=== PATIENT | female | born 1970 | race Hispanic/Latino ===

== ENCOUNTER 2016-07-23 17:21 | Inpatient (IN) | payer OTHER ==
[2016-07-23 18:16] LABS: RBC URINE 2 /hpf (0-3); URINE BACTERIA RARE (<OCC); URINE BILIRUBIN 1+ (NEGATIVE); URINE BLOOD NEGATIVE (NEGATIVE); URINE COLOR Amber (YELLOW); URINE GLUCOSE (UA) NORMAL (Normal); URINE KETONE TRACE mg/dL (NEGATIVE); URINE LEUKOCYTE ESTERASE NEG Leu/uL (Negative); URINE PROTEIN NEGATIVE (NEGATIVE); WBC URINE 1 /hpf (0-5)
[2016-07-23 18:27] LABS: BASO # 0.1 K/uL (0.0-0.2); BASO % 0.9 % (0.0-2.0); EOS # 0.2 K/uL (0.0-0.7); EOS % 2.4 % (0.0-4.0); HEMATOCRIT 32.7 % (34.0-47.0); LYMPH # 2.3 K/uL (1.0-4.3); LYMPH % 30.9 % (20.0-40.0); MEAN CELL VOLUME 80.7 fL (81.0-99.0); MEAN CORPUSCULAR HEMOGLOBIN 25.8 pg (27.0-31.0); MEAN PLATELET VOLUME 7.8 fL (7.2-11.7); MONO # 0.5 K/uL (0.0-0.8); MONO % 7.1 % (0.0-10.0); RED CELL DISTRIBUTION WIDTH 16.6 % (11.5-14.5); WHITE BLOOD COUNT 7.5 K/uL (4.8-10.8)
[2016-07-23 18:40] LABS: CHLORIDE 105 mmol/L (98-107); POTASSIUM 3.7 mmol/L (3.6-5.2); SODIUM 138 mmol/L (132-148)
[2016-07-23 18:42] LABS: GFR AFRICAN-AMERICAN > 60
[2016-07-23 18:43] LABS: ALKALINE PHOSPHATASE 58 U/L (38-126); ALT/SGPT 57 U/L (9-52); AST/SGOT 48 U/L (14-36); BILIRUBIN,TOTAL 0.7 mg/dL (0.2-1.3); BLOOD UREA NITROGEN 13 mg/dL (7-17); CALCIUM 9.5 mg/dl (8.6-10.4); CARBON DIOXIDE 21 mmol/L (22-30); GLUCOSE,RANDOM 113 mg/dL (65-105); TOTAL PROTEIN 8.2 g/dL (6.3-8.3)
[2016-07-23 18:44] LABS: ALCOHOL SERUM < 10 mg/dl (0-10)
--- NOTE | 2016-07-23 19:59 | C.PDOC ---
History Of Present Illness Patient presents to the ER requesting detox from heroin. Patients last use was 1 bag 4 hours ago. Denies any physical complaints at this time. Time Seen by Provider: 07/23/16 19:56 Chief Complaint (Nursing): Substance Abuse History Per: Patient History/Exam Limitations: no limitations Onset/Duration Of Symptoms: Hrs (4) Current Symptoms Are (Timing): Still Present Suicide/Self Injury Attempted (Context): None Modifying Factor(s): Narcotics Severity: None Pain Scale Rating Of: 0 Associated Symptoms: denies: Depression, Suicidal Thoughts, Suicidal Plan Involuntary Hold By: None Recent travel outside of the [place]: No Past Medical History Reviewed: Historical Data, Nursing Documentation, Vital Signs Vital Signs: Last Vital Signs Temp 98.5 F 07/23/16 17:34 Pulse 75 07/23/16 17:34 Resp 20 07/23/16 17:34 BP 104/67 07/23/16 17:34 Pulse Ox 98 07/23/16 20:05 - Medical History PMH: Asthma - [facility] Procedures ARTIF RUPT [facility]BRANES NEC (11/06/00) MANUAL ASSIST DELIV NEC (04/05/04) REPAIR OB LACERATION NEC (11/06/00) Family History: States: No Known Family Hx - Social History Hx Alcohol Use: No Hx Substance Use: Yes - Immunization History Hx Tetanus Toxoid Vaccination: Yes Hx Influenza Vaccination: Yes Hx Pneumococcal Vaccination: Yes Review Of Systems Constitutional: Negative for: Fever, Chills ENT: Negative for: Throat Pain Cardiovascular: Negative for: Chest Pain Gastrointestinal: Negative for: Nausea, Vomiting, Diarrhea Genitourinary: Negative for: Dysuria Musculoskeletal: Negative for: Back Pain Skin: Negative for: Rash Neurological: Negative for: Weakness Psych: Negative for: Anxiety Physical Exam - Physical Exam Appears: Non-toxic Skin: Warm, Dry Head: Normacephalic Eye(s): bilateral: Normal Inspection Oral Mucosa: Moist Neck: Supple Chest: Symmetrical, No Tenderness Cardiovascular: Rhythm Regular, No Murmur Respiratory: No Rales, No Rhonchi, No Wheezing Gastrointestinal/Abdominal: Soft, No Tenderness Extremity: Normal ROM Extremity: Bilateral: Atraumatic Neurological/Psych: Oriented x3 Gait: Steady ED Course And Treatment - Laboratory Results Result Diagrams: 07/23/16 18:24 07/23/16 18:24 O2 Sat by Pulse Oximetry: 98 (Room air) Pulse Ox Interpretation: Normal Progress Note: Consulted on case with crisis. Disposition Counseled Patient/Family Regarding: Studies Performed, Diagnosis - Disposition Disposition Time: 19:00 Condition: FAIR - POA Present On Arrival: None - Clinical Impression Clinical Impression: Drug dependence - Scribe Statement The provider has reviewed the documentation as recorded by the Scribe Tye Byrne All medical record entries made by the Scribe were at my direction and personally dictated by me. I have reviewed the chart and agree that the record accurately reflects my personal performance of the history, physical exam, medical decision making, and the department course for this patient. I have also personally directed, reviewed, and agree with the discharge instructions and disposition. Decision To Admit - Pt Status Changed To: Hospital Disposition Of: Inpatient - Admit Certification Admit to Inpatient:: After my assessment, the patient will require hospitalization for at least two midnights. This is because of the severity of symptoms shown, intensity of services needed, and/or the medical risk in this patient being treated as an outpatient. - InPatient: Physician Admission Certification: I certify that this patient requires 2 or more midnights of care for the following reason:: After my assessment, the patient will require hospitalization for at least two midnights. This is because of the severity of symptoms shown, intensity of services needed, and/or the medical risk in this patient being treated as an outpatient. - . Bed Request Type: Detox Admitting Physician: Nilson Canales Patient Diagnosis: Drug dependence
[2016-07-23] MEDS ORDERED: Albuterol HFA 90 mcg/actuation (8 g) INH PRN (21:05)
[2016-07-24] MEDS ORDERED: Buprenorphine Hydrochloride 2 mg SL ONE ×6 (01:02→19:04)
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
[2016-07-24] MEDS: Aluminum Hydroxide/Magnesium Hydroxide Susp (30 mL) PO PRN (15:36)
[2016-07-24] MEDS: Pantoprazole 20 mg EC Tab PO SCH (15:37)
[2016-07-25] MEDS: Aluminum Hydroxide/Magnesium Hydroxide Susp (30 mL) PO PRN (01:51)
[2016-07-25] MEDS ORDERED: Buprenorphine Hydrochloride 2 mg SL ONE ×3 (08:45→18:00)
[2016-07-25] MEDS: Pantoprazole 20 mg EC Tab PO SCH (10:38)
--- NOTE | 2016-07-25 11:53 | PCM.PYCHPN ---
Psychiatric Progress Note - Psychiatric Progress Note Patient seen today, length of contact: 15 min Patient Chief Complaint: "I feel better" Problems Identified/Issues Discussed: The pt is seen, chart reviewed, case discussed with staff. The pt is compliant with medications and reports no side-effects. She reports improvement in her symptoms from yesterday but had a bad day yesterday. Patient receiving extra doses; will receive 10 mg today. Symptoms are improving but needs more time to stabilize. After care discussed, support and psychoeducation given. Patient plans to meet with social work to discuss after care and rehab/IOP options. Time: 15 min Medication Change: Yes (detox changes daily) Medical Record Reviewed: Yes Mental Status Examination - Cognitive Function Orientation: Person, Place, Situation, Time Memory: Intact Attention: WNL Concentration: WNL Association: WNL Fund of Knowledge: WNL - Mood Mood: Depressed, Anxious - Affect Affect: Broad - Speech Speech: Appropriate - Formal Thought Process Formal Thought Process: No Impairment - Suicidal Ideation Suicidal Ideation: No - Homicidal Ideation Homicidal Ideation: No Goal/Treatment Plan - Goal/Treatment Plan Need for Continued Stay: Remain at risks for inpatient hospitalization, Discharge may exacerbated symptoms Progress Toward Problem(s) and Goals/Treatment Plan: Opioid use disorder severe - CBT - Psychoeducation - Supportive therapy, individual therapy - Use AL for abstinence Opioid withdrawal - CBT - Psychoeducation - Supportive therapy, individual therapy - Clonidine when necessary - Subutex taper Bipolar disorder mixed mild - CBT - Psychoeducation - Supportive therapy, group therapy, individual therapy - Trazodone 50 mg by mouth daily at bedtime Asthma - Continue prescribed medications - Monitor signs and symptoms Estimated Date of D/C: 07/29/16 (pending improvement of symptoms) - Smoking Cessation Smoking Cessation Initiated: Yes
[2016-07-26] MEDS: Aluminum Hydroxide/Magnesium Hydroxide Susp (30 mL) PO PRN (07:32)
[2016-07-26] MEDS: Pantoprazole 20 mg EC Tab PO SCH ×2 (08:59→11:11)
[2016-07-26] MEDS ORDERED: Buprenorphine Hydrochloride 2 mg SL ONE ×2 (09:00→18:00)
--- NOTE | 2016-07-26 10:34 | PCM.PYCHPN ---
Psychiatric Progress Note - Psychiatric Progress Note Patient seen today, length of contact: 15 min Patient Chief Complaint: "I feel nauseous." Problems Identified/Issues Discussed: The pt is seen, chart reviewed, case discussed with staff. The pt is evaluated at bedside. She is compliant with medications and reports no side-effects. She reports improvement in her symptoms from yesterday but still feels nauseous and withdrawal symptoms. Patient receiving extra doses; will receive 6 mg today with extra 2 mg in the evening. Symptoms are improving but needs more time to stabilize. After care discussed, support and psychoeducation given. Patient plans to go to [facility] upon discharge. Time: 15 min Medication Change: Yes (detox changes daily) Medical Record Reviewed: Yes Mental Status Examination - Cognitive Function Orientation: Person, Place, Situation, Time Memory: Intact Attention: WNL Concentration: WNL Association: WNL Fund of Knowledge: WNL - Mood Mood: Depressed, Anxious - Affect Affect: Broad - Speech Speech: Appropriate - Formal Thought Process Formal Thought Process: No Impairment - Suicidal Ideation Suicidal Ideation: No - Homicidal Ideation Homicidal Ideation: No Goal/Treatment Plan - Goal/Treatment Plan Need for Continued Stay: Remain at risks for inpatient hospitalization, Discharge may exacerbated symptoms Progress Toward Problem(s) and Goals/Treatment Plan: Opioid use disorder severe - CBT - Psychoeducation - Supportive therapy, individual therapy - Use DE for abstinence Opioid withdrawal - CBT - Psychoeducation - Supportive therapy, individual therapy - Clonidine when necessary - Subutex taper Bipolar disorder mixed mild - CBT - Psychoeducation - Supportive therapy, group therapy, individual therapy - Trazodone 50 mg by mouth daily at bedtime Asthma - Continue prescribed medications - Monitor signs and symptoms Estimated Date of D/C: 07/29/16 (pending improvement of symptoms)
[2016-07-27] MEDS ORDERED: Buprenorphine Hydrochloride 2 mg SL ONE ×2 (08:30→18:00)
[2016-07-27] MEDS: Pantoprazole 20 mg EC Tab PO SCH (09:07)
--- NOTE | 2016-07-27 12:11 | PCM.PYCHPN ---
Psychiatric Progress Note - Psychiatric Progress Note Patient seen today, length of contact: 16 min Patient Chief Complaint: "I can't sleep" Problems Identified/Issues Discussed: The pt is seen, chart reviewed, case discussed with staff. Support given, CBT and OH used briefly No new symptoms reported, improving slowly and needs more time No SEs from medications, risks discussed. After care discussed Seroquel increased Medication Change: Yes (detox changes daily) Medical Record Reviewed: Yes Mental Status Examination - Cognitive Function Orientation: Person, Place, Situation, Time Memory: Intact Attention: WNL Concentration: WNL Association: WNL Fund of Knowledge: WNL - Mood Mood: Depressed, Anxious - Affect Affect: Broad - Speech Speech: Appropriate - Formal Thought Process Formal Thought Process: No Impairment - Suicidal Ideation Suicidal Ideation: No - Homicidal Ideation Homicidal Ideation: No Goal/Treatment Plan - Goal/Treatment Plan Need for Continued Stay: Remain at risks for inpatient hospitalization, Discharge may exacerbated symptoms, Severe functional impairment Progress Toward Problem(s) and Goals/Treatment Plan: Opioid use disorder severe - CBT - Psychoeducation - Supportive therapy, individual therapy - Use OH for abstinence Opioid withdrawal - CBT - Psychoeducation - Supportive therapy, individual therapy - Clonidine when necessary - Subutex taper Bipolar disorder mixed mild - CBT - Increase seroquel - Psychoeducation - Supportive therapy, group therapy, individual therapy - Trazodone 50 mg by mouth daily at bedtime Asthma - Continue prescribed medications - Monitor signs and symptoms Estimated Date of D/C: 07/29/16 (pending improvement of symptoms)
[2016-07-28] MEDS: Buprenorphine Hydrochloride 2 mg SL SCH ×2 (09:09→17:09)
[2016-07-28] MEDS: Pantoprazole 20 mg EC Tab PO SCH (09:09)
--- NOTE | 2016-07-28 09:32 | PCM.PYCHPN ---
Psychiatric Progress Note - Psychiatric Progress Note Patient seen today, length of contact: 17 min Patient Chief Complaint: "I am anxious" Problems Identified/Issues Discussed: The pt is seen, chart reviewed, case discussed with staff. Support given, CBT and FL used briefly No new symptoms reported, improving slowly and needs some more time No SEs from medications, risks discussed. After care discussed Medication Change: Yes (detox changes daily) Medical Record Reviewed: Yes Mental Status Examination - Cognitive Function Orientation: Person, Place, Situation, Time Memory: Intact Attention: WNL Concentration: WNL Association: WNL Fund of Knowledge: WNL - Mood Mood: Depressed, Anxious - Affect Affect: Broad - Speech Speech: Appropriate - Formal Thought Process Formal Thought Process: No Impairment - Suicidal Ideation Suicidal Ideation: No - Homicidal Ideation Homicidal Ideation: No Goal/Treatment Plan - Goal/Treatment Plan Need for Continued Stay: Remain at risks for inpatient hospitalization, Discharge may exacerbated symptoms, Severe functional impairment Progress Toward Problem(s) and Goals/Treatment Plan: Opioid use disorder severe - CBT - Psychoeducation - Supportive therapy, individual therapy - Use FL for abstinence Opioid withdrawal - CBT - Psychoeducation - Supportive therapy, individual therapy - Clonidine when necessary - Subutex taper Bipolar disorder mixed mild - CBT - Increase seroquel - Psychoeducation - Supportive therapy, group therapy, individual therapy - Trazodone 50 mg by mouth daily at bedtime Asthma - Continue prescribed medications - Monitor signs and symptoms Estimated Date of D/C: 07/29/16 (pending improvement of symptoms)
[2016-07-28] MEDS: Aluminum Hydroxide/Magnesium Hydroxide Susp (30 mL) PO PRN (20:59)
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
[2016-07-29] MEDS: Buprenorphine Hydrochloride 2 mg SL SCH (09:34)
[2016-07-29] MEDS: Pantoprazole 20 mg EC Tab PO SCH (09:34)
[2016-07-29 09:57] VITALS: RESP 16; TEMP 98
[2016-07-29 10:05] VITALS: BP 100/67; PULSE 85; O2SAT 99
== END 2016-07-29 10:58 | disposition home or self-care (01) | DRG 745 ==
LOC: C.ER 17:21 → C.7D 20:22
PROVIDERS: ADMIT Psychiatry & Neurology Psychiatry; ATTEND Psychiatry & Neurology Psychiatry
PROC: HZ52ZZZ Individual Psychotherapy for Substance Abuse Treatment, Cognitive-Behavioral (ICD-10-PCS; principal; 2016-07-23)
PROC: HZ59ZZZ Individual Psychotherapy for Substance Abuse Treatment, Supportive (ICD-10-PCS; 2016-07-23)
PROC: HZ56ZZZ Individual Psychotherapy for Substance Abuse Treatment, Psychoeducation (ICD-10-PCS; 2016-07-23)
PROC: HZ2ZZZZ Detoxification Services for Substance Abuse Treatment (ICD-10-PCS; 2016-07-23)
DX: F11.23 Opioid dependence with withdrawal (principal); F31.60 Bipolar disorder, current episode mixed, unspecified; F17.210 Nicotine dependence, cigarettes, uncomplicated; F14.90 Cocaine use, unspecified, uncomplicated; F42.9 Obsessive-compulsive disorder, unspecified; F43.10 Post-traumatic stress disorder, unspecified; J45.909 Unspecified asthma, uncomplicated

== ENCOUNTER 2016-09-25 18:44 | Inpatient (IN) | payer MEDICAID ==
[2016-09-25 18:50] VITALS: BMI 26.1
--- NOTE | 2016-09-25 19:23 | C.PDOC ---
History Of Present Illness 46 y/o female with Hx of chronic iron deficiency due to DUB presents to ED requesting Heroin detox last snorted 4pm today. Patient states she snorts 10 bags daily. No track cardenas noted. Patient is non compliant with iron supplements and is not interested in having more children. Patient is interested in Hysterectomy and denies dyspnea on exertion or sob. No other complaints at this time. Time Seen by Provider: 09/25/16 19:14 Chief Complaint (Nursing): Substance Abuse History Per: Patient History/Exam Limitations: no limitations Onset/Duration Of Symptoms: Days Current Symptoms Are (Timing): Still Present Suicide/Self Injury Attempted (Context): None Past Medical History Reviewed: Historical Data, Nursing Documentation, Vital Signs Vital Signs: Last Vital Signs Temp 98.5 F 09/25/16 21:44 Pulse 81 09/25/16 21:44 Resp 18 09/25/16 21:44 BP 116/69 09/25/16 21:44 Pulse Ox 95 09/26/16 06:16 - Medical History PMH: Anxiety, Asthma, Bipolar Disorder, Depression, HTN, Post Traumatic Stress Disorder - [facility] Procedures [facility] N[facility] (11/06/00) DETOXIFICATION SERVICES FOR SUBSTANCE ABUSE TREATMENT (07/23/16) INDIV PSYCHOTHERAPY FOR SUBSTANCE ABUSE TREATMENT, SUPPORT (07/23/16) INDIV PSYCHOTHERAPY FOR SUBSTANCE ABUSE, COGNITIV BEHAVIORAL (07/23/16) INDIV PSYCHOTHERAPY FOR SUBSTANCE ABUSE, PSYCHOEDUCATION (07/23/16) MANUAL ASSIST DELIV NEC (04/05/04) REPAIR OB LACERATION NEC (11/06/00) Family History: States: No Known Family Hx - Social History Hx Alcohol Use: No Hx Substance Use: Yes - Immunization History Hx Tetanus Toxoid Vaccination: Yes Hx Influenza Vaccination: Yes Hx Pneumococcal Vaccination: Yes Review Of Systems Except As Marked, All Systems Reviewed And Found Negative. Constitutional: Negative for: Fever, Chills Cardiovascular: Negative for: Chest Pain Respiratory: Negative for: Shortness of Breath Gastrointestinal: Negative for: Nausea, Vomiting Skin: Negative for: Rash Psych: Negative for: Anxiety Physical Exam - Physical Exam Appears: Non-toxic, No Acute Distress Skin: Normal Color, Warm Head: Atraumatic, Normacephalic Eye(s): bilateral: Normal Inspection, PERRL, EOMI Oral Mucosa: Moist Chest: Symmetrical Cardiovascular: Rhythm Regular Respiratory: Normal Breath Sounds, No Rales, No Rhonchi, No Wheezing Gastrointestinal/Abdominal: Soft, No Tenderness, No Guarding, No Rebound Neurological/Psych: Oriented x3, Normal Speech, Normal Cognition ED Course And Treatment - Laboratory Results Result Diagrams: 09/25/16 19:34 09/25/16 19:34 Lab Interpretation: Abnormal (microcytic MCV 80, tox + opiates) Urine POC: Negative O2 Sat by Pulse Oximetry: 95 (RA) Pulse Ox Interpretation: Normal Reevaluation Time: 20:45 Reassessment Condition: Unchanged (remains cooperative) Medical Decision Making Medical Decision Making: opiate use and underying signficant psych history- pending Psych/Detox admission microcytic anemia due to DUB, non-compliant w PO iron supplements TID Consider Iron infusions, hysterectomy restart PO iron on floors and continue as opt Disposition Doctor Will See Patient In The: Hospital Counseled Patient/Family Regarding: Studies Performed, Diagnosis - Disposition Disposition: HOSPITALIZED Disposition Time: 20:47 Condition: GOOD - Clinical Impression Clinical Impression: Opiate abuse, continuous, Iron deficiency anemia - PA / GRAINER MACHINE / Resident Statement MD/DO has examined the patient and agrees with the treatment plan. - Scribe Statement The provider has reviewed the documentation as recorded by the Diandra Hairston All medical record entries made by the Diandra were at my direction and personally dictated by me. I have reviewed the chart and agree that the record accurately reflects my personal performance of the history, physical exam, medical decision making, and the department course for this patient. I have also personally directed, reviewed, and agree with the discharge instructions and disposition.
[2016-09-25 19:39] LABS: BASO % 0.6 % (0.0-2.0); EOS # 0.4 K/uL (0.0-0.7); EOS % 6.7 % (0.0-4.0); HEMATOCRIT 27.5 % (34.0-47.0); LYMPH # 1.8 K/uL (1.0-4.3); LYMPH % 27.8 % (20.0-40.0); MEAN CELL VOLUME 80.3 fL (81.0-99.0); MEAN CORPUSCULAR HEMOGLOBIN 26.1 pg (27.0-31.0); MEAN CORPUSCULAR HGB CONC 32.5 g/dL (33.0-37.0); MEAN PLATELET VOLUME 7.1 fL (7.2-11.7); MONO # 0.6 K/uL (0.0-0.8); MONO % 9.5 % (0.0-10.0); RED CELL DISTRIBUTION WIDTH 16.9 % (11.5-14.5); WHITE BLOOD COUNT 6.3 K/uL (4.8-10.8)
[2016-09-25 19:43] LABS: RBC URINE 16 /hpf (0-3); URINE BACTERIA MANY (<OCC); URINE BILIRUBIN NEGATIVE (NEGATIVE); URINE BLOOD 2+ (NEGATIVE); URINE COLOR Yellow (YELLOW); URINE GLUCOSE (UA) NORMAL (Normal); URINE KETONE TRACE mg/dL (NEGATIVE); URINE LEUKOCYTE ESTERASE NEG Leu/uL (Negative); URINE PROTEIN NEGATIVE (NEGATIVE); WBC URINE 8 /hpf (0-5)
[2016-09-25 19:47] LABS: CHLORIDE 101 mmol/L (98-107)
[2016-09-25 19:48] LABS: POTASSIUM 4.3 mmol/L (3.6-5.2); SODIUM 136 mmol/L (132-148)
[2016-09-25 19:50] LABS: AST/SGOT 100 U/L (14-36); BILIRUBIN,TOTAL 0.4 mg/dL (0.2-1.3); BLOOD UREA NITROGEN 11 mg/dL (7-17); CARBON DIOXIDE 25 mmol/L (22-30); GFR AFRICAN-AMERICAN > 60; TOTAL PROTEIN 6.8 g/dL (6.3-8.3)
[2016-09-25 19:51] LABS: ALCOHOL SERUM < 10 mg/dl (0-10); ALKALINE PHOSPHATASE 60 U/L (38-126); ALT/SGPT 136 U/L (9-52); CALCIUM 8.9 mg/dl (8.6-10.4); GLUCOSE,RANDOM 113 mg/dL (65-105)
[2016-09-25] MEDS ORDERED: Aluminum Hydroxide/Magnesium Hydroxide Susp (30 mL) PO PRN (21:00)
--- NOTE | 2016-09-25 21:00 | PCM.BM ---
Treatment Plan Problems - Problems identified on initial assessmt Potential for Opiate withdrawal Date Initiated: 09/25/16 Time Initiated: 20:59 Assessment reference: NA Status: Active Priority: 1 Treatment assets and liabiliti Patient Assests: cooperative, ADL independent, negotiates basic needs, cognitively intact Patient Liabilities: substance abuse ((+) for opiates) - Milieu Protocol Maintain good personal hygiene: daily Encourage regular showers, daily Remind patient to perform daily oral care Conduct patient checks and document Observation sheet: Q15 minutes Maintain personal safety: every shift Educate patient to report safety concerns to staff, every shift Monitor environment for contraband/sharps Medication safety: Monitor for expected outcome, potential side effects: every shift, Assess barriers to learning: every shift, Assess readiness for medication education: every shift
[2016-09-25] MEDS ORDERED: Albuterol HFA 90 mcg/actuation (8 g) INH PRN (21:49)
[2016-09-26 10:04] VITALS: RESP 18
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
[2016-09-27 16:28] VITALS: BP 107/71; PULSE 67; TEMP 98.9; O2SAT 97
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
== END 2016-09-27 17:54 | disposition left against medical advice (07) | DRG 743 ==
LOC: C.ER 18:44 → C.7D 20:48
PROC: HZ2ZZZZ Detoxification Services for Substance Abuse Treatment (ICD-10-PCS; principal; 2016-09-25)
DX: F11.23 Opioid dependence with withdrawal (principal); I10 Essential (primary) hypertension; D50.9 Iron deficiency anemia, unspecified; F17.210 Nicotine dependence, cigarettes, uncomplicated; F31.61 Bipolar disorder, current episode mixed, mild; F43.10 Post-traumatic stress disorder, unspecified; J45.909 Unspecified asthma, uncomplicated; N93.8 Other specified abnormal uterine and vaginal bleeding; Z91.14 Patient's other noncompliance with medication regimen

== ENCOUNTER 2016-11-29 16:38 | Emergency (ER) | payer MEDICAID, OTHER ==
[2016-11-29 16:39] VITALS: BMI 26.1
[2016-11-29 16:45] VITALS: RESP 18; O2SAT 98
[2016-11-29] MEDS ORDERED: Iohexol 240 (50 ml) PO STA (17:16)
[2016-11-29] MEDS ORDERED: Sodium Chloride 0.9% 1,000 ML IV ONE (17:16)
[2016-11-29] MEDS ORDERED: Sodium Chloride 0.9% 1,000 ML ONE (17:24)
[2016-11-29] MEDS ORDERED: Iohexol 240 (50 ml) ONE (17:24)
[2016-11-29 18:24] LABS: BASO # 0.1 K/uL (0.0-0.2); EOS # 0.8 K/uL (0.0-0.7); EOS % 12.3 % (0.0-4.0); HEMATOCRIT 31.3 % (34.0-47.0); LYMPH # 2.5 K/uL (1.0-4.3); LYMPH % 37.4 % (20.0-40.0); MEAN CELL VOLUME 80.3 fL (81.0-99.0); MEAN CORPUSCULAR HEMOGLOBIN 26.2 pg (27.0-31.0); MEAN CORPUSCULAR HGB CONC 32.6 g/dL (33.0-37.0); MEAN PLATELET VOLUME 7.7 fL (7.2-11.7); MONO # 0.5 K/uL (0.0-0.8); MONO % 7.7 % (0.0-10.0); WHITE BLOOD COUNT 6.8 K/uL (4.8-10.8)
[2016-11-29 18:32] LABS: CHLORIDE 100 mmol/L (98-107)
[2016-11-29 18:33] LABS: SODIUM 134 mmol/L (132-148)
[2016-11-29 18:34] LABS: POTASSIUM 4.1 mmol/L (3.6-5.2)
[2016-11-29 18:35] LABS: GFR AFRICAN-AMERICAN > 60
[2016-11-29 18:36] LABS: ALB/GLOB RATIO 0.8 (1.0-2.1); ALKALINE PHOSPHATASE 65 U/L (38-126); ALT/SGPT 101 U/L (9-52); AST/SGOT 78 U/L (14-36); BILIRUBIN,TOTAL 0.5 mg/dL (0.2-1.3); BLOOD UREA NITROGEN 13 mg/dL (7-17); CALCIUM 9.3 mg/dl (8.6-10.4); CARBON DIOXIDE 25 mmol/L (22-30); GLUCOSE,RANDOM 91 mg/dL (65-105); TOTAL PROTEIN 8.8 g/dL (6.3-8.3)
[2016-11-29 18:37] LABS: MAGNESIUM 1.7 mg/dL (1.6-2.3)
[2016-11-29 18:49] LABS: RBC URINE 1 /hpf (0-3); URINE BACTERIA MOD (<OCC); URINE BILIRUBIN NEGATIVE (NEGATIVE); URINE BLOOD NEGATIVE (NEGATIVE); URINE COLOR Amber (YELLOW); URINE GLUCOSE (UA) NORMAL (Normal); URINE KETONE TRACE mg/dL (NEGATIVE); URINE LEUKOCYTE ESTERASE NEG Leu/uL (Negative); URINE PROTEIN NEGATIVE (NEGATIVE); WBC URINE 1 /hpf (0-5)
[2016-11-29] MEDS ORDERED: Iohexol 300 100 ML IJ ONE (19:53)
--- NOTE | 2016-11-29 21:34 | CT ---
EXAM: CT Abdomen and Pelvis With Intravenous Contrast EXAM DATE/TIME: 11/29/2016 6:48 PM CLINICAL HISTORY: 46 years old, female; Pain; Abdominal pain; Generalized; Additional info: Abd pain and constipation. TECHNIQUE: Axial computed tomography images of the abdomen and pelvis with intravenous contrast. All CT scans at this facility use one or more dose reduction techniques, viz.: automated exposure control; ma/kV adjustment per patient size (including targeted exams where dose is matched to indication; i.e. head); or iterative reconstruction technique. Coronal and sagittal reformatted images were created and reviewed. CONTRAST: 100 mL of OMNIPAQUE 300 administered intravenously. COMPARISON: There are no prior studies for comparison. FINDINGS: Lower thorax: Heart size is normal. There are atelectatic changes at the lung bases. There is a small hiatal hernia. ABDOMEN: Liver: unremarkable Gallbladder and bile ducts: Gallbladder is collapsed.There is prominence of the common duct. Pancreas: unremarkable Spleen: unremarkable Adrenals: unremarkable Kidneys and ureters: unremarkable Stomach and bowel: Stomach is partially distended. Rotation is normal. Proximal small bowel is decompressed. There is oral contrast in nondilated mid and distal small bowel. Terminal ileum is unremarkable. Appendix is unremarkable. There is a large amount of stool throughout the colon. Appendix: See above PELVIS: Bladder: unremarkable Reproductive: Uterus and adnexal structures are unremarkable. ABDOMEN and PELVIS: Intraperitoneal space: There is no significant fluid.There is no free air. Bones/joints: There are early degenerative changes in the spine. Soft tissues: There is a small fat containing umbilical hernia. Vasculature: There are vascular calcifications. Lymph nodes: There is no pathologic adenopathy. IMPRESSION: Constipation; no acute solid visceral abnormality Additional findings as described above.
--- NOTE | 2016-11-29 21:53 | C.PDOC ---
Time Seen by Provider: 11/29/16 16:58 Chief Complaint (Nursing): Abdominal Pain History Per: Patient Onset/Duration Of Symptoms: Days (about 1 month) Current Symptoms Are (Timing): Still Present Severity: Moderate Location Of Pain/Discomfort: Diffuse Quality Of Discomfort: Unable To Describe Associated Symptoms: Constipation Alleviating Factors: None Last Bowel Movement: Days Ago (??) Additional History Per: Prior Records Past Medical History Reviewed: Historical Data, Nursing Documentation, Vital Signs Vital Signs: Last Vital Signs Temp 98.2 F 11/29/16 16:42 Pulse 78 11/29/16 16:42 Resp 18 11/29/16 16:42 BP 115/80 11/29/16 16:42 Pulse Ox 98 11/29/16 16:42 - Medical History PMH: Anxiety, Asthma, Bipolar Disorder, Depression, HTN, Post Traumatic Stress Disorder Other Surgeries: Ovarian surgery? - [facility] Procedures [facility]PT [facility] NEC (11/06/00) DETOXIFICATION SERVICES FOR SUBSTANCE ABUSE TREATMENT (09/25/16) INDIV PSYCHOTHERAPY FOR SUBSTANCE ABUSE TREATMENT, SUPPORT (07/23/16) INDIV PSYCHOTHERAPY FOR SUBSTANCE ABUSE, COGNITIV BEHAVIORAL (07/23/16) INDIV PSYCHOTHERAPY FOR SUBSTANCE ABUSE, PSYCHOEDUCATION (07/23/16) MANUAL ASSIST DELIV NEC (04/05/04) REPAIR OB LACERATION NEC (11/06/00) Family History: States: Unknown Family Hx - Social History Hx Alcohol Use: No Hx Substance Use: Yes (On Methadone) - Immunization History Hx Tetanus Toxoid Vaccination: Yes Hx Influenza Vaccination: Yes Hx Pneumococcal Vaccination: Yes Review Of Systems Except As Marked, All Systems Reviewed And Found Negative. Constitutional: Negative for: Fever Cardiovascular: Negative for: Chest Pain Respiratory: Negative for: Shortness of Breath Gastrointestinal: Positive for: Vomiting ("sometimes"), Abdominal Pain, Constipation. Negative for: Melena, Hematochezia, Hematemesis Genitourinary: Negative for: Dysuria Musculoskeletal: Negative for: Neck Pain, Back Pain Skin: Negative for: Rash Neurological: Negative for: Weakness, Numbness, Seizures Physical Exam - Physical Exam Appears: Non-toxic, No Acute Distress Skin: Normal Color, Warm, Dry, No Rash Head: Atraumatic, Normacephalic Eye(s): bilateral: Normal Inspection, PERRL, EOMI Oral Mucosa: Moist Neck: Normal ROM, Supple Cardiovascular: Rhythm Regular Respiratory: Normal Breath Sounds, No Accessory Muscle Use Gastrointestinal/Abdominal: Soft, No Distention, No Guarding, No Rebound Rectal: Rectal Tone (wnl), Other (brown stool present, but no fecal impaction) Back: No CVA Tenderness Extremity: Normal ROM Neurological/Psych: Oriented x3, Normal Motor, Normal Sensation ED Course And Treatment - Laboratory Results Result Diagrams: 11/29/16 18:20 11/29/16 18:20 Urine POC: Negative O2 Sat by Pulse Oximetry: 98 Pulse Ox Interpretation: Normal - CT Scan/US CT abd/pelvi Other Rad Studies (CT/US): Read By Radiologist, Radiology Report Reviewed CT/US Interpretation: IMPRESSION: Constipation; no acute solid visceral abnormality. . Additional findings as described above. Progress Note: Pt is now requesting to be discharged without further treatment in the ED. Progress - Interventions Interventions:: Observation, Intravenous fluid - Data Reviewed Data Reviewed: Lab, Diagnostic imaging, Old records - Continuity of Care Discussed patient case with:: Patient, ED Nurse - Patient Plan Patient Plan: Discharge, F/U with PCP, Continue present meds Disposition Counseled Patient/Family Regarding: Studies Performed, Diagnosis, Need For Followup, Rx Given - Disposition Referrals: Jewel Rosario MD [Staff Provider] - Disposition: HOME/ ROUTINE Disposition Time: 21:54 Condition: STABLE Additional Instructions: Drink plenty of fluids. Follow up with your doctor for further evaluation and treatment. Return to the ER if you develop fever, vomiting, worsening of symptoms or if you have any other concerns. Prescriptions: Ciprofloxacin [Cipro] 1 tab PO BID #10 tab Sennosides [Senokotxtra] 1 tab PO DAILY #14 tablet Instructions: Constipation (ED), Urinary Tract Infection in Women (ED) - Clinical Impression Clinical Impression: UTI (urinary tract infection), Constipation
[2016-11-29 22:18] VITALS: TEMP 98
[2016-11-29 22:19] VITALS: BP 110/70; PULSE 78
== END 2016-11-29 22:20 | disposition home or self-care (01) ==
LOC: C.ER 16:38
DX: N39.0 Urinary tract infection, site not specified (principal); K59.00 Constipation, unspecified; I10 Essential (primary) hypertension
CPT/HCPCS: 74177; 80053; 80324; 80345; 80346; 80349; 80353; 80358; 80361; 81001; 83690; 83735; 83992; 84703; 85025; 96360; 99285; J7040; Q9966; Q9967